=== PATIENT | male | born 1975 | race Caucasian/White ===

== ENCOUNTER 2016-10-21 10:09 | Emergency (ER) | payer OTHER ==
[2016-10-21 10:15] VITALS: BP 151/93; PULSE 59; BMI 38.0
--- NOTE | 2016-10-21 11:07 | PDOC ---
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 Came in today for evaluation of right index finger swelling and pain noted this morning. Occurred: reports: this morning Severity: reports: mild, moderate Pain Location: reports: upper extremity Modifying Factors: improves with: None (index finger) Associated Symptoms (Fall): denies symptoms Past History - Travel Traveled outside of the country in the last 30 days: No Close contact w/someone who was outside of country & ill: No - Past Medical History Allergies/Adverse Reactions: Allergies Allergy/AdvReac Type Severity Reaction Status Date / Time aspirin Allergy Verified 10/21/16 10:12 erythromycin base Allergy Verified 10/21/16 10:12 [Erythromycin Base] Folic Acid-Fa Containing Allergy Verified 10/21/16 10:12 Macrolide Antibiotics Allergy Verified 10/21/16 10:12 Salicylates * [Salicylates] Allergy Verified 10/21/16 10:12 antihistamines Allergy Uncoded 10/21/16 10:12 sympathomimetic agents Allergy Uncoded 10/21/16 10:12 Home Medications: Ambulatory Orders Buspirone HCl [Buspar] 10 mg PO BID 09/13/11 Carvedilol [Coreg] 12.5 mg PO BID 09/13/11 Cholecalciferol (Vitamin D3) [Vitamin D3] 2,000 unit PO BID 09/13/11 Fluvoxamine Maleate [Luvox Cr] 50 mg PO BID 09/13/11 Talc/Cellulos/Chloroxy/Aldioxa [Zeasorb Powder] 1 applic TP BID 09/13/11 Topiramate [Topamax] 150 mg PO BID 09/13/11 Sulfamethoxazole/Trimethoprim [Bactrim Ds Tablet] 1 each PO ONCE #14 tablet GI Disorders: Yes HTN: Yes Psychiatric Problems: Yes Other medical history: AUTISITC. - Psycho/Social/Smoking Cessation Hx Anxiety: No Suicidal Ideation: No Smoking Status: No Smoking History: Never smoked Number of Cigarettes Smoked Daily: 0 Hx Alcohol Use: No Drug/Substance Use Hx: No Trauma Specific PMHX - Complaint Specific PMHX Arthritis: No Back Injury: No Review of Systems - Review of Systems Able to Perform ROS?: No Is the patient limited French proficient: Yes Constitutional: Yes: Symptoms Reported Respiratory: No: Symptoms reported Musculoskeletal: Yes: Symptoms Reported, See HPI Integumentary: Yes: Symptoms Reported, See HPI, Erythema, Lesions Neurological: Yes: Symptoms reported All Other Systems: Reviewed and Negative *Physical Exam - Vital Signs Last Vital Signs Temp Pulse Resp BP Pulse Ox 59 L 18 151/93 99 10/21/16 10:12 10/21/16 10:12 10/21/16 10:12 10/21/16 10:12 - Physical Exam General Appearance: Yes: Nourished, Appropriately Dressed, Apparent Distress HEENT: positive: JUAN, Normal ENT Inspection, TMs Normal, Pharynx Normal Neck: positive: Supple. negative: Tender Musculoskeletal: negative: Normal Inspection Extremity: positive: Normal Capillary Refill, Normal Range of Motion, Tender Integumentary: positive: Erythema (fluctuant paronychia to ulnar aspect right index finger ), Swelling Neurologic: positive: set up machinist II-XII NML intact, Alert. negative: Fully Oriented Procedures - Incision and Drainage I&D Site: Right: Paronychia (index finger) Betadine cleansed: Yes Blade Size: 11 Complications: none Dressing: Yes ED Treatment Course - RADIOLOGY Radiology Studies Ordered: Category Date Time Status FINGER(S) RIGHT [RAD] Stat Radiology 10/21/16 11:05 Ordered Progress Note - Progress Note Progress Note: paronychia incised and drained, noted on Bactrim, wound was dressed with bacitracin *DC/Admit/Observation/Transfer Diagnosis at time of Disposition: Paronychia of finger Qualifiers: Laterality: right Qualified Code(s): L03.011 - Cellulitis of right finger - Discharge Dispostion Disposition: HOME Condition at time of disposition: Stable Admit: No - Prescriptions Prescriptions: Sulfamethoxazole/Trimethoprim [Bactrim Ds Tablet] 1 each PO ONCE #14 tablet - Patient Instructions Printed Discharge Instructions: DI for Paronychia Additional Instructions: Rest, keep hand elevated Avoid heavy lifting or strenuous activity until healed Soak finger every 2-3 hours while awake for the next 2-3 days to keep continue to allow drainage Reapply bacitracin ointment and bulky dressing after each soaking May use ibuprofen or Tylenol for pain relief Followup with private physician in one to 2 days for wound check as needed Return immediately to emergency department or private doctor's for worsening redness, swelling, pain, streaking Bactrim DS , 1 tablet every 12 hours for one week
[2016-10-21] MEDS ORDERED: SULFAMETHOXAZOLE/TRIMETHOPRIM 800MG/160MG D.S. TABLET PO ONE (12:02)
[2016-10-21] MEDS ORDERED: SULFAMETHOXAZOLE/TRIMETHOPRIM 800MG/160MG D.S. TABLET ONE (12:06)
== END 2016-10-21 12:25 | disposition home or self-care (01) ==
LOC: JERFT 10:09
PROC: 0H9FXZZ Drainage of Right Hand Skin, External Approach (ICD-10-PCS; principal; 2016-10-21)
DX: L03.011 Cellulitis of right finger (principal); F71 Moderate intellectual disabilities; F84.0 Autistic disorder; F98.8 Other specified behavioral and emotional disorders with onset usually occurring in childhood and adolescence
CPT/HCPCS: 10060; 73140-TC-RT; 99281-25

== ENCOUNTER 2021-10-01 16:32 | Emergency (ER) | payer OTHER ==
[2021-10-01] MEDS ORDERED: FLUORESCEIN NA 1 EA STRIP OD ONE (16:40)
[2021-10-01] MEDS ORDERED: TETRACAINE 0.5% HCL 0.6ML DROPPER.BOTTLE OD ONE (16:40)
[2021-10-01 16:50] VITALS: BP 136/58; PULSE 67; TEMP 97.6; BMI 28.1
[2021-10-01] MEDS ORDERED: TETRACAINE 0.5% OPHTH SOLN 2 ML BOTTLE ONE (16:53)
[2021-10-01] MEDS ORDERED: FLUORESCEIN NA 1 EA STRIP ONE (16:53)
== END 2021-10-01 17:20 | disposition home or self-care (01) ==
LOC: JER 16:32
DX: H11.31 Conjunctival hemorrhage, right eye (principal)
CPT/HCPCS: 99282-25